=== PATIENT | male | born 1995 | race Caucasian/White ===

== ENCOUNTER 2016-11-06 21:22 | Inpatient (IN) ==
[2016-11-06] MEDS ORDERED: MOM Conc 10 ML UD.LIQ PO PRN (22:49)
[2016-11-06] MEDS ORDERED: hydrOXYzine pamoate 25 MG CAPSULE PO PRN (22:49)
[2016-11-06] MEDS ORDERED: Haloperidol Lactate 5 MG/ML VIAL IM PRN (22:49)
[2016-11-06] MEDS ORDERED: *HR* LORazepam 1 MG TABLET PO PRN (22:49)
[2016-11-06] MEDS ORDERED: *HR* LORazepam 2 MG/ML VIAL IM PRN (22:49)
[2016-11-07] MEDS: Acetaminophen 325 MG TABLET PO PRN ×2 (00:14→17:51)
[2016-11-07] MEDS: traZODone 50 MG TABLET PO PRN ×2 (00:14→22:23)
--- NOTE | 2016-11-07 11:24 | Psychiatry History & Physical ---
Date of Encounter: 11/07/16 Time of Encounter: 12:00 History of Present Illness Patient Stated Chief Complaint: "I have a problem." Medicare Admission Attestation: For traditional Medicare patients the provided hospital inpatient services are reasonable and necessary and in the case of services not specified as inpatient -only under 42 CFR 419.22 (n), that they are appropriately provided as inpatient services in accordance 42 CFR 412.3. For [facility] the patient may reasonably be expected to be discharged or transferred to a hospital within 96 hours after admission to the Critical [facility]. Admitted From: Direct Admit History of Present Illness: Mr. Deleon is a 21 year old male with an unclear psychiatric history who was directly admitted from an outside facility after presenting with increasing hallucinations, intrusive thoughts, anxiety, some bizarre behavior. Patient reports that over the past few years he has noted that he can occasionally hear and see things other people cannot hear and see. He admits that this did not start when he started smoking marijuana several years ago. He also reports a lot of recent stressors including the fact that his father last year. He currently lives with his mother and his 1-year-old son. He and his girlfriend recently split up. Patient reports that he often has racing thoughts and cannot control his thought process. He admits to obsessing over various thoughts that pop into his head. Today he reported to staff that he had the thought that he left his son home alone without his son and his mom had suddenly. This was very upsetting to him and he could not get that thought out of his head. Eventually was able to talk to his family which calmed him down. Patient states that this is a common occurrence for him. He also has visual hallucinations and occasionally sees C on off the page. He has never taken medication for this problem. He also reports a disturbance in his sleep and states that he has trouble falling asleep and staying asleep because of his anxiety and intrusive thoughts. He denies suicidal ideation. He denies homicidal ideations. He believes he lives in a very supportive environment with his mother. He states he stops smoking marijuana about a week ago. Past Med Surg Social Fam HX - Past Medical History Medical history: asthma - Past Psychiatric History Psychiatric history: Reports: other (Cannabis use). Denies: no psych history, previous psychiatric hospitalization Family psychiatric history: Yes Family Psychiatric History Details: Uncle had schizophrenia. Family History of Suicide: None - Past Surgical History Surgical History: no surgical history - Social History Smoking Status: Former smoker Smokeless Tobacco Status: No Alcohol use: rarely Drug use: marijuana Medications & Allergies Allergies No Known Allergies Allergy (Verified 11/06/16 22:46) Review of Systems Constitutional: Denies: fever, chills, weakness, weight change Eyes: Denies: eye pain, vision change Ears, Nose, Throat: Denies: ear pain, throat pain, dental pain, hearing loss, congestion Cardiovascular: Denies: chest pain, palpitations, dyspnea on exertion Respiratory: Denies: cough, dyspnea, wheezes Gastrointestinal: Denies: abdominal pain, nausea, vomiting, diarrhea, constipation Genitourinary male: Denies: urgency, dysuria, frequency, genital lesions Genitourinary female: Denies: urgency, dysuria, frequency, abnormal menses, dyspareunia Musculoskeletal: Denies: joint swelling, joint pain Integumentary: Denies: rash, lesions, pruritus Neurological: Denies: headache, weakness, numbness, memory loss Psychiatric: Reports: anxiety, abnormal sleep pattern, auditory hallucinations, visual hallucinations, difficulty concentrating, panic attacks. Denies: suicidal ideation Endocrine: Denies: fatigue, heat or cold intolerance Hematologic/Lymphatic: Denies: easy bruising, lymphadenopathy Allergic/Immunologic: Denies: urticaria, itchy eyes Mental Status Exam Patient orientation: Yes Person, Yes Time, Yes Place Level of alertness: Alert Patient appearance: Appropriate Behavior: cooperative, guarded Psychomotor activity: Slowed Eye contact: Fleeting Contact Mood description: Anxious Affect description: blunted Speech pattern: Pressured Speech volume: Normal Thought process: [place] Thought content: No Suicidal ideation, No Homicidal ideation Perceptual disturbances: No Reacting to internal stimuli, Yes Auditory hallucinations, Yes Visual hallucinations Attention span: Capable of Focused Attention Memory description: Grossly Intact Patient reliability: Reliable Historian Intelligence estimate: Average Judgment: Limited Insight: Minimal Results - Vital Signs Vital signs: Temp Pulse Resp BP 98.8 F 109 18 149/106 11/07/16 09:00 11/07/16 09:00 11/07/16 09:00 11/07/16 09:00 Assessment and Plan (1) Psychosis Current visit: Yes Status: Acute Plan: Admit inpatient for safety and stabilization, Close observation, Suicide Precautions per unit protocol, Encourage participation in unit milieu, Group Therapy, Monitor sleep, Monitor appetite Additional Plan: Patient has never had a psych admission past but reports chronic symptoms of auditory and visual hallucinations along with severe anxiety. Marijuana may be playing a role of psychosis but he did stop using about a week ago. We will start Risperdal 1 mg by mouth twice a day for psychotic symptoms. Encourage patient to attend group and unit activities and monitor behavior as well as appetite. Trazodone for sleep. Risks, benefits, side effects, alternatives discussed w/pt: Yes Patient agreeable to treatment: Yes Plans for Post Hospital Care: Home Estimated Length of Stay (Days): 3 Qualifiers: Psychosis type: unspecified psychosis type Qualified Code(s): F29 - Unspecified psychosis not due to a substance or known physiological condition (2) Anxiety Current visit: Yes Status: Acute Plan: Admit inpatient for safety and stabilization, Close observation, Suicide Precautions per unit protocol, Encourage participation in unit milieu, Group Therapy, Monitor sleep, Monitor appetite Additional Plan: Valium 5 mg by mouth twice a day for severe anxiety symptoms. Monitor vitals. Encourage positive coping strategies. Risks, benefits, side effects, alternatives discussed w/pt: Yes Patient agreeable to treatment: Yes (3) Cannabis abuse Current visit: Yes Status: Acute Plan: Admit inpatient for safety and stabilization, Close observation, Suicide Precautions per unit protocol, Encourage participation in unit milieu, Group Therapy, Monitor sleep, Monitor appetite Additional Plan: Discussed with patient that the marijuana may in fact be worsening his symptoms. Encourage patient to discontinue use. Risks, benefits, side effects, alternatives discussed w/pt: Yes Patient agreeable to treatment: Yes
[2016-11-07] MEDS ORDERED: hydrOXYzine pamoate 25 MG CAPSULE PO PRN (11:25)
[2016-11-07] MEDS: risperiDONE 1 MG TABLET PO SCH ×2 (11:36→20:31)
[2016-11-07] MEDS ORDERED: diazePAM 5 MG TABLET PO ONE (11:45)
[2016-11-07] MEDS: diazePAM 5 MG TABLET PO PRN ×2 (18:19→23:55)
[2016-11-07] MEDS: Mag Hydrox/Al Hydrox/Simeth 30 ML UDC PO PRN (21:20)
[2016-11-08] MEDS: diazePAM 5 MG TABLET PO PRN ×2 (07:32→18:53)
[2016-11-08] MEDS: Acetaminophen 325 MG TABLET PO PRN (08:31)
[2016-11-08] MEDS: risperiDONE 1 MG TABLET PO SCH ×2 (08:31→21:27)
--- NOTE | 2016-11-08 10:47 | Psychiatry Progress Note ---
Date of Encounter: 11/08/16 Time of Encounter: 10:00 Subjective Interval history: Arash is seen today for follow-up. He still remains anxious and reported some delusions to staff about his family dying. He denies side effects of the medications. He does remain tachycardic at times. Patient is able to verbalize that he has been on medications before for his pulse. Patient's thought process remains very concrete and at times he may be responding to internal stimuli. He does report occasional auditory hallucinations but states that they are less since arriving at the hospital. Review of Systems Psychiatric: Reports: anxiety, abnormal sleep pattern, auditory hallucinations, visual hallucinations, difficulty concentrating, panic attacks. Denies: suicidal ideation Objective: Exam Patient orientation: Yes Person, Yes Time, Yes Place Level of alertness: Alert Patient appearance: Appropriate Behavior: cooperative, guarded Psychomotor activity: Slowed Eye contact: Fleeting Contact Mood description: Anxious Affect description: blunted Speech pattern: Pressured Speech volume: Normal Thought process: [place] Thought content: No Suicidal ideation, No Homicidal ideation Perceptual disturbances: No Reacting to internal stimuli, Yes Auditory hallucinations, Yes Visual hallucinations Judgment: Limited Insight: Minimal Results - Vital Signs Vital Signs: Temp Pulse Resp BP 97.6 F 121 16 136/92 11/08/16 08:36 11/08/16 08:36 11/08/16 08:36 11/08/16 08:36 Assessment and Plan (1) Psychosis Current visit: Yes Status: Acute Plan: Continue hospitalization, Close observation, Suicide Precautions per unit protocol, Encourage participation in unit milieu, Group Therapy, Monitor sleep, Monitor appetite Additional Plan: Continue Risperdal. We have added propranolol to help with anxiety symptoms as well as pulse issues. Continue to monitor. Risks, benefits, side effects, alternatives discussed w/pt: Yes Patient agreeable to treatment: Yes Qualifiers: Psychosis type: unspecified psychosis type Qualified Code(s): F29 - Unspecified psychosis not due to a substance or known physiological condition (2) Anxiety Current visit: Yes Status: Acute Plan: Continue hospitalization, Close observation, Suicide Precautions per unit protocol, Encourage participation in unit milieu, Group Therapy, Monitor sleep, Monitor appetite Additional Plan: Continue Valium as needed for anxiety. Risks, benefits, side effects, alternatives discussed w/pt: Yes Patient agreeable to treatment: Yes (3) Cannabis abuse Current visit: Yes Status: Acute Risks, benefits, side effects, alternatives discussed w/pt: Yes Patient agreeable to treatment: Yes Consult Discharge Plan - Plan Referrals: NO,PCP [Primary Care Provider] -
[2016-11-08] MEDS: Nicotine 2 MG GUM BC PRN (10:54)
--- NOTE | 2016-11-08 16:34 | Electrocardiograph Report ---
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
[2016-11-08] MEDS: traZODone 50 MG TABLET PO PRN (21:27)
[2016-11-09] MEDS: Acetaminophen 325 MG TABLET PO PRN (00:15)
[2016-11-09] MEDS: Mag Hydrox/Al Hydrox/Simeth 30 ML UDC PO PRN (08:38)
[2016-11-09] MEDS: risperiDONE 1 MG TABLET PO SCH (08:38)
[2016-11-09] MEDS: Nicotine 2 MG GUM BC PRN (08:39)
[2016-11-09 10:14] VITALS: BP 133/72
--- NOTE | 2016-11-09 12:04 | Discharge Summary ---
Date of Encounter: 11/09/16 Time of Encounter: 11:58 Diagnosis - Discharge Diagnosis (1) Psychosis Status: Acute Qualifiers: Psychosis type: unspecified psychosis type Qualified Code(s): F29 - Unspecified psychosis not due to a substance or known physiological condition (2) Cannabis abuse Status: Acute Medications - Discharge Medications Prescriptions: Propranolol [Inderal] 20 mg PO BID #60 tablet RisperiDONE [RisperDAL] 1 mg PO BID #60 tablet TraZODone 50 mg PO HS PRN #30 tablet PRN Reason: Insomnia Propranolol [Inderal] 20 mg PO BID #60 tablet 11/09/16 [Rx] RisperiDONE [RisperDAL] 1 mg PO BID #60 tablet 11/09/16 [Rx] TraZODone 50 mg PO HS PRN #30 tablet 11/09/16 [Rx] Allergies No Known Allergies Allergy (Verified 11/06/16 22:46) Provider Date of admission: 11/06/16 21:22 Primary care physician: PCP NO Discharging clinician: Miriam Thrasher Assessment and Plan - Patient/Caregiver Discharge Instructions Activity: resume usual activities as tolerated Diet: regular diet - Follow up Plan Follow up with: Pete Chapman [Other] - 11/21/16 2:00 pm (This appointment is with Dr. Chapman.) [facility] [Outside] Overall status at discharge: Stable Disposition: Home, Self-Care Hospital Course Hospital course: Mr. Deleon is a 21 year old male Was admitted for psychotic breakdown with auditory hallucinations and paranoia and delusions. After explaining there is minimal side effects alternatives to treatment and consequences of no treatment and getting informed consent from the patient patient was started on antipsychotic medication Risperdal 1 mg twice a day. Patient's pulse was high and he was anxious so Inderal was started 20 mg twice a day. Patient was also put on trazodone 50 mg at bedtime when necessary for insomnia. Patient was encouraged to attend and parts of it in groups and activities on the unit which included supportive therapy psychoeducational cognitive restructuring stress management groups etc. the patient responded well to the therapeutic milieu started noticing improvement in his symptoms became more controlled and compliant. Psychotic symptoms started to subside. He attended groups and participated in activities and learn coping skills and develop a safety plan. He tolerated medications fairly well did not report any psychotic symptoms suicidal ideation or homicidal ideation the time of discharge. Overall his discharge condition was stable. - Time Spent with Patient Total time spent providing and/or coordinating discharge services: Quality - Multiple Antipsychotics Patient discharged on 2 or more antipsychotic medications: No Procedures - Procedures Procedures: Medication Management, Crisis Stabilization, Supportive Therapy, Group Therapy, Psychoeducational Therapy Mental Status Exam - Mental Status Exam Patient orientation: Yes Person, Yes Time, Yes Place Level of alertness: Alert Patient appearance: Appropriate Behavior: cooperative Psychomotor activity: Normal Eye contact: Maintains Eye Contact Mood description: Euthymic/stable Affect description: congruent with mood, full range, euthymic Speech pattern: Normal rate, Normal rhythm, Normal tone Speech Volume: Normal Thought process: Linear, Goal Oriented Thought Content: No Suicidal ideation, No Homicidal ideation, No Overt delusions Perceptual Disturbances: No Reacting to internal stimuli, No Auditory hallucinations, No Visual hallucinations Judgment: Fair Insight: Partial
== END 2016-11-09 13:15 | disposition home or self-care (01) | DRG 885 ==
LOC: SUATTDRO 21:22 → 1ANU 21:22
PROVIDERS: ADMIT Student in an Organized Health Care Education/Training Program; ATTEND Psychiatry & Neurology Psychiatry